=== PATIENT | male | born 1960 | race Caucasian/White ===

== ENCOUNTER → 2017-06-01 | Outpatient (REF) ==
[2017-06-01 15:33] LABS: COLLAGEN EPINEPHRINE 137 SECONDS (74-162)
== END ==
LOC: M LAB REF 16:25
DX: Z51.81 Encounter for therapeutic drug level monitoring (principal); Z79.899 Other long term (current) drug therapy

== ENCOUNTER → 2022-10-15 | Outpatient (CLI) | payer OTHER ==
[~2022-10-15] MED LIST: ACET1TAB16 OR; BACL10TA2 OR; CLAR5CHW OR; IBUP400T OR; NEUR100C OR; OMEP20TA7 OR; PREG50CA OR; TRAM50TA2 OR
[2022-10-15 08:41] LABS: ABG BASE EXCESS -1.1 (-2.0-2.0); ABG HCO3 23.4 MMOL/L (22.0-26.0); ABG O2 SATURATION 95.7 % (95.0-99.0); ABG PARTIAL PRESSURE CO2 38.9 mmHg (35.0-45.0); ABG PARTIAL PRESSURE O2 79.8 mmHg (75.0-100.0); ABG STANDARD HCO3 23.5 MMOL/L. (22.0-26.0); ABG TOTAL CO2 24.6 MMOL/L (23.0-31.0); ABG pH (ARTERIAL) 7.398 UNITS (7.350-7.450)
== END ==
LOC: M LAB 08:14
PROVIDERS: ATTEND Internal Medicine Pulmonary Disease
DX: J44.9 Chronic obstructive pulmonary disease, unspecified (principal)

== ENCOUNTER 2023-03-14 13:58 | Emergency (ER) | payer OTHER ==
[~2023-03-14] VITALS: Ht 185.4 cm; Wt 86.3 kg
[2023-03-14 14:00] VITALS: BP 137/82; TEMP 98.4; O2SAT 98
[2023-03-14] MEDS ORDERED: HYDR-643 (14:15)
[2023-03-14] MEDS ORDERED: ATOR1TAB19 (14:15)
[2023-03-14] MEDS ORDERED: STIO1AER (14:15)
[2023-03-14] MEDS ORDERED: BUSP15TA47 (14:15)
[2023-03-14] MEDS ORDERED: CITA40TA7 (14:15)
[2023-03-14 14:52] LABS: BASO % 0.4 % (0.0-1.0); EOS # 0.1 10^3/uL (0.0-0.5); EOS % 1.1 % (0.0-3.0); HEMATOCRIT 44.4 % (42.0-52.0); HEMOGLOBIN 14.7 g/dl (13.5-17.5); LYMPH # 1.1 10^3/uL (1.5-5.0); MEAN CORPUSCULAR HEMOGLOBIN 30.8 pg (27.0-33.0); MEAN CORPUSCULAR HGB CONC 33.1 g/dl (32.0-36.5); MEAN CORPUSCULAR VOLUME 93.1 fl (80.0-96.0); MONO # 0.7 10^3/uL (0.0-0.8); MONO % 9.2 % (2.0-8.0); NEUTROPHILS # 5.6 10^3/uL (1.5-8.5); NEUTROPHILS % 73.8 % (36.0-66.0); PLATELET COUNT, AUTOMATED 203 10^3/uL (150-450); RED BLOOD COUNT 4.77 10^6/uL (4.30-6.10); WHITE BLOOD COUNT 7.6 10^3/uL (4.0-10.0)
[2023-03-14 15:06] LABS: INR 1.09; PARTIAL THROMBOPLASTIN TIME 29.3 SECONDS (24.8-34.2); PROTHROMBIN TIME 13.8 SECONDS (12.5-14.5)
[2023-03-14 15:19] LABS: ALBUMIN 3.6 G/DL (3.2-5.2); BILIRUBIN,DIRECT 0.3 MG/DL (<0.4); BILIRUBIN,TOTAL 1.1 MG/DL (0.3-1.2); TOTAL PROTEIN 6.6 G/DL (5.7-8.2)
[2023-03-14] MEDS ORDERED: BACTRIM 160MG/800MG DS TAB PO ONE (17:25)
[2023-03-14] MEDS ORDERED: SULF1TAB23 PO (17:26)
== END 2023-03-14 17:54 | disposition home or self-care (01) ==
LOC: M ED 13:58
DX: R31.9 Hematuria, unspecified (principal); R30.0 Dysuria; K21.9 Gastro-esophageal reflux disease without esophagitis; E78.5 Hyperlipidemia, unspecified; F12.10 Cannabis abuse, uncomplicated; F41.9 Anxiety disorder, unspecified; Z87.891 Personal history of nicotine dependence; Z79.02 Long term (current) use of antithrombotics/antiplatelets; Z79.2 Long term (current) use of antibiotics; Z79.899 Other long term (current) drug therapy